=== PATIENT | female | born 1965 | race Caucasian/White ===

== ENCOUNTER 2021-07-25 07:43 | Outpatient (CLI) | payer OTHER, SELFPAY ==
--- NOTE | ~2021-07-25 | MR_ITS ---
EXAMINATION: MR knee RT wo con DATE: 07/25/2021 08:29 INDICATION: Right knee pain. TECHNIQUE: Magnetic resonance imaging (MRI) of the right knee was performed without intravenous contr ast. Sequences included axial PD-weighted FS FSE, coronal PD-weighted FSE and PD-weighted FS FSE, sag ittal PD-weighted FSE, and sagittal T2-weighted FS FSE. COMPARISON: None. FINDINGS: Medial compartment: There is a complex tear involving body and posterior horn of medial meniscus. There is full-thickness cartilage loss of tibial condyle involving the central and medial articular surface with cortical re modeling and moderate subchondral edema-like marrow signal intensity. There is full-thickness cartila ge loss of femoral condyle involving the central and posterior articular surface with mild subchondra l edema-like marrow signal intensity. Osteophytes are noted. Lateral compartment: Lateral meniscus is normal. There is cartilage surface irregularity of tibial condyle. There is a sma ll area of full-thickness cartilage loss of femoral condyle involving the central articular surface. Marginal osteophytes are noted. Patellofemoral compartment: There is full-thickness cartilage loss involving patellar medial and lateral facets and median ridge with moderate subchondral edema-like signal intensity and cortical remodeling. There is full-thicknes s cartilage loss of central and medial trochlea with mild subchondral edema-like marrow signal intens ity and cortical remodeling. Osteophytes are noted. Ligaments and tendons: The anterior and posterior cruciate ligaments are normal. Edema around the medial collateral ligament is likely from the medial compartment pathology described above. Lateral collateral ligament complex is intact. There is mild patellar tendinopathy. Fluid: There is a small knee joint effusion. There is a moderate-sized loculated Hawley's cyst. IMPRESSION: 1. Severe tricompartmental chondrosis. 2. Tear of medial meniscus. 3. Small knee joint effusion. 4. Moderate-sized loculated Hawley's cyst. Reviewed, dictated and finalized at location A.
== END 2021-07-25 07:44 | disposition home or self-care (01) ==
LOC: ANHIMG 07:51
PROVIDERS: PCP Internal Medicine; Visit Provider Internal Medicine
DX: M25.561 Pain in right knee (principal); S83.241A Other tear of medial meniscus, current injury, right knee, initial encounter; M25.461 Effusion, right knee; M71.21 Synovial cyst of popliteal space [Baker], right knee
CPT/HCPCS: 73721

== ENCOUNTER 2025-04-19 13:19 | Emergency (ER) | payer OTHER, SELFPAY ==
[2025-04-19 13:35] VITALS: BP 111/86; PULSE 86; RESP 16; TEMP 36.9; O2SAT 100
--- NOTE | 2025-04-19 14:28 | ED_ITS ---
HPI - Extremity Injury (Lower) General Chief Complaint: Extremity Injury, Lower Stated Complaint: INJURED L KNEE Time Seen by Provider: 04/19/25 14:28 Source: patient, RN notes reviewed and old records reviewed Mode of arrival: ambulatory Limitations: no limitations History of Present Illness HPI Narrative: 59-year-old female presents to the [facility] with left knee pain. Pain started after playing softball. Patient reports that she played softball Monday night, woke up with with the pain and mild swelling. Did take Aleve, Tylenol, Motrin. Has a history of arthritis. Does have a orthopedic provider. Recently received a injection in the right knee. Patient states that she has leaving for vacation on and was hoping to have the knee better. Onset (ago): day(s) (2) Treatments prior to arrival: NSAIDS Related Data Home Medications ?Medication ?Instructions ?Recorded ?Confirmed ?Last Taken ?Type mecobalamin (vitamin B12) 1,000 1,000 mcg PO DAILY 01/10/24 01/02/25 Unknown History mcg chewable tablet Allergies Allergy/AdvReac Type Severity Reaction Status Date / Time No Known Allergies Allergy Unknown Verified 04/19/25 13:50 Review of Systems Review of Systems: All systems reviewed & are unremarkable except as noted in HPI and below Constitutional: Constitutional: Reports no additional constitutional complaints Musculoskeletal: Musculoskeletal: Reports as per HPI, Reports arthralgias and Reports joint swelling Integumentary/Breasts: Skin/Breast: Reports system reviewed and no additional complaints, except as docu PMFSH Past Medical History Medical History FH: rheumatoid arthritis mom and sister delivery delivered Hyperlipidemia Surgical History Surgical History H/O knee surgery History of colonoscopy 01/18/2018, 04/2021 Family History Family History Father Hypertension Grandparent Diabetes mellitus Social History Social History Social History: 12/26/24 Patient declined SDOH Smoking status: Never smoker Second hand tobacco smoke exposure: No Alcohol intake: current Substance use: never Substance use type: does not use Living arrangements: with family Occupation/Education: occupation Additional occupation/education comments: [employer] Gender identity (if verbalized by the patient): Female Sexual Orientation (if Verbalized by the Patient): Straight or Heterosexual Agree to blood products: Yes Comments At the time of my signature, I reviewed and agree with the nursing past medical, surgical, social, and family history. There is no relevant family history pertinent to the patient complaint. Exam Const: General: cooperative, healthy appearing, comfortable, no acute distress, well developed, alert and well nourished Nutritional Appearance: well nourished Orientation/consciousness: patient oriented x3 Limitations: no limitations HENMT: Head: normal to inspection Eyes: General: appearance normal, both eyes and all related structures Alignment and Position: alignment normal Neck: Neck: normal visual inspection, full ROM, no lymphadenopathy and no meningeal signs Chest: Chest palpation & inspection: normal inspection of the chest Resp: Effort & Inspection: normal respiratory effort and able to speak in complete sentences Cardio: Rate: regular rate Skin: General skin exam: normal color and no rashes or lesions noted Neuro: General: patient oriented x3, gait normal, moves all extremities and no meningeal signs Cognition (Neuro): normal cognition Speech: normal speech Gait exam (Neuro): Normal gait present Extrem: General: normal to inspection, full ROM, capillary refill normal and normal gait Left lower extremity: knee Details: tenderness ( Lateral upper and posterior), swelling ( lateral upper), normal ROM and knee ligament exam normal; no abrasions, no lacerations, no ecchymosis, no deformity and no unusual warmth Psych: Appearance: grossly normal and well kempt Mental Status: mental status grossly normal Speech and movement: Normal speech and movement present and Clear speech present Affect: normal affect Attitude: cooperative Course Course Level of Care: Express Care Visit Vital Signs Vital signs: Vital Signs Temperature 98.5 F 04/19/25 13:35 Pulse Rate 86 04/19/25 13:35 Respiratory Rate 16 04/19/25 13:35 Blood Pressure 111/86 04/19/25 13:35 Pulse Oximetry 100 04/19/25 13:35 Temperature 98.5 F 04/19/25 13:35 Pulse Rate 86 04/19/25 13:35 Respiratory Rate 16 04/19/25 13:35 Blood Pressure 111/86 04/19/25 13:35 Pulse Oximetry 100 04/19/25 13:35 Reviewed MDM - Extremity Injury (Lower) MDM Narrative Medical decision making narrative: patient sitting in exam room. Patient is nontoxic, vitals are stable. Patient presents with left knee pain. Discussed doing an x-ray which she declined at this time stating that she knows she does have arthritis. Had no trauma. No bruising noted. Patient most likely with joint effusion from arthritic changes. Discussed [id number] products. Discussed following up with orthopedic provider patient appropriate for outpatient treatment with close follow-up Discharge instructions reviewed with patient, as well as provided in writing per nursing staff. The instructions also include specific and strict return/GO TO THE ER as well as f/u information. All questions have been answered, and the patient deny any further questions with discharge and discharge plan. Some parts of this dictation were generated by voice recognition software and may contain typographical and/or grammatical inaccuracies. Differential Diagnosis Differential diagnosis: Likely other (Osteoarthritis, knee effusion) Critical Care Time Critical Care Time Critical Care Time: No Discharge Plan Discharge Clinical Impression: Ankle sprain and strain, Effusion of knee joint, left Patient Disposition: Home Condition: Stable Instructions: Antibiotic Form, Knee Sprain (DC), Swollen Knee Joint (ED) Additional Instructions: rest, ice and elevate every 2-3 hours for 15 to 20 minutes while awake take Tylenol alternating with ibuprofen as needed for pain wear a knee support or brace during the day, not at night it is recommended you wear a compression brace. Follow-up with your orthopedic provider if no improvement in 10-14 days Patient Language: Maltese Prescriptions: No Action mecobalamin (vitamin B12) 1,000 mcg tablet,chewable 1,000 mcg PO DAILY rosuvastatin 20 mg tablet 20 mg PO DAILY Qty: 90 0RF Follow-up/Referrals: Keyanna Tyson PA-C [Primary Care Provider] - 1 Week (express care follow up ) Time of Disposition: 14:40
== END 2025-04-19 14:45 | disposition home or self-care (01) ==
PROVIDERS: Emergency Provider Nurse Practitioner; PCP Physician Assistant Medical
DX: S93.409A Sprain of unspecified ligament of unspecified ankle, initial encounter (principal); M25.462 Effusion, left knee; E78.5 Hyperlipidemia, unspecified; X58.XXXA Exposure to other specified factors, initial encounter
CPT/HCPCS: 99212; G0463